=== PATIENT | female | born 1945 | race Caucasian/White ===

== ENCOUNTER 2018-01-31 04:15 | Inpatient (IN) | payer OTHER ==
[~2018-01-31] VITALS: Ht 157.5 cm; Wt 72.5 kg
[~2018-01-31 04:15] MED LIST: ASPIR-LOW81 MG; ASPIRIN81 M2 PO; ATARAX,VISTARIL25 MG PO; ATIVAN0.5 MG PO; ATORVASTATIN CA10 MG PO; BACLOFEN10 MG PO; BENADRYL25 MG PO; BUSPAR5 MG PO; CLARITIN,ALAVAR10 MG PO; COMBIVENT200 INHALA IH; CRANBERRY405 MG PO; DILAUDID4 MG PO; DITROPAN XL5 MG PO; DUONEB 2.5-0.5 M3 ML AEROSOL; DUONEB 2.5-0.5 M3 ML IH; EFFEXOR XR150 MG PO; EUCERIN CREME57 GM TP; EX-LAX15 MG PO; FERROUS SULFAT325 MG PO; FUROSEMIDE20 MG PO; GABAPENTIN600 MG PO; GUAIFENESIN400 MG PO; HYDROCODON-ACE1 EAC7 PO; HYDROMORPHONE HC4 MG PO; KENALOG,ARISTOC80 GM TP; LASIX20 MG PO; LASIX80 MG PO; LEVAQUIN750 MG PO; LEVOFLOXAC750 MG/150 IV; LIDODERM 5% P1 PATCH TD; LIORESAL10 MG PO; LIPITOR10 MG PO; LISINOPRIL5 MG PO; LO-DOSE ASPIRIN81 M1; LO-DOSE ASPIRIN81 M1 PO; LOVENOX30 MG/0.3 SC; LOVENOX40 MG/0.4 SC; NEURONTIN300 MG PO; NEURONTIN600 MG PO; Nucynta PO; OMEPRAZOLE20 M2 PO; OMEPRAZOLE40 M1 PO; OXYBUTYNIN CHLOR5 M1 PO; PLAVIX75 MG; POTASSIMIN75 MG PO; PREDNISONE10 MG PO; PRILOSEC20 MG PO; PRO-STAT AWC L887 ML PO; PROTONIX40 MG PO; Q-TUSSIN DM SY240 ML PO; RITALIN10 MG PO; ROBITUSSIN DM118 ML PO; ROBITUSSIN100 MG/5 M PO; ROCEPHIN1000 MG IM; SENEXON-S TABL1 EACH PO; SENOKOT S,PE1 TABLET PO; SILVADENE20 GM TP; SPIRIVA1 INHALATI IH; STOOL SOFTENER100 M1 PO; TEGRETOL100 MG PO; TRIAMCINOLONE AC5 GM DT; TYLENOL REGULA325 MG PO; Tylenol Regular Stre PO; VENLAFAXINE HC150 M1 PO; VESICARE5 MG PO; VITAMIN D1000 UNIT PO; VITAMIN D250000 UNIT PO; XARELTO20 MG PO; ZESTRIL5 MG PO; Zocor PO; Zoloft PO
[2018-01-31 05:30] LABS: BASOPHIL (%) 0.2 % (0-1); CHLORIDE 107 mEq/L (99-109); EOSINOPHIL (%) 1.9 % (0-5); EOSINOPHIL COUNT 0.2 K/uL (0-0.3); HEMATOCRIT 36.8 % (36.0-46.0); HEMOGLOBIN 11.7 G/DL (11.9-15.5); IMMATURE GRANULOCYTE (%) 0.6 % (0.0-0.7); LYMPHOCYTE COUNT 0.9 K/uL (1.0-2.8); MAGNESIUM 2.2 mg/dL (1.3-2.7); MCH 29.6 PG (29.0-34.0); MCHC 31.8 G/DL (30.0-36.0); MCV 93.2 FL (83-99); MONOCYTE (%) 3.5 % (3-12); MONOCYTE COUNT 0.3 K/uL (0-0.8); NEUTROPHIL (%) 82.8 % (45-76); NEUTROPHIL COUNT 7.1 K/uL (1.8-6.4); PLATELET COUNT 165 K/uL (156-360); POTASSIUM 4.4 mEq/L (3.7-5.4); RBC DIS.WIDTH-CV 13.7 % (11.8-14.6); RBC DIS.WIDTH-SD 47.1 % (39-53); RED BLOOD COUNT 3.95 M/uL (3.80-5.20); SODIUM 144 mEq/L (136-147); WHITE BLOOD COUNT 8.5 K/uL (4.1-10.2)
[2018-01-31 05:31] LABS: GLUCOSE 121 mg/dL (70-99)
[2018-01-31 05:35] LABS: CREATININE 0.8 mg/dL (0.6-1.3); GFR ESTIMATE (CALCULATED) > 59 mL/min/
[2018-01-31 05:36] LABS: UREA NITROGEN (BUN) 16 mg/dL (9-23)
[2018-01-31 05:41] LABS: INTER. NORMALIZED RATIO 1.2
[2018-01-31 05:43] LABS: TROP-I INTERPRETATION NEGATIVE; TROPONIN-I < 0.01 ng/mL (0.0-0.30)
[2018-01-31 05:44] LABS: PTT 27.9 SEC (25-37)
[2018-01-31] MEDS ORDERED: MILK OF MAGN PO (08:55)
[2018-01-31] MEDS ORDERED: DULCOLAX10 MG PR (08:56)
[2018-01-31] MEDS ORDERED: SALINE PR (09:05)
[2018-01-31] MEDS ORDERED: LIPITOR10 MG PO (09:07)
[2018-01-31 09:56] VITALS: BP 131/61
[2018-01-31 12:01] VITALS: BP 127/58
[2018-01-31 15:30] VITALS: BP 143/63
[2018-01-31 19:28] VITALS: BP 134/62
[2018-02-01] VITALS (7 sets, daily range): BP systolic 111–188; BP diastolic 45–75
[2018-02-01] MEDS ORDERED: TEGRETOL100 MG PO (07:45)
[2018-02-01] MEDS ORDERED: BUMEX1 MG PO (07:45)
[2018-02-01] MEDS ORDERED: NEURONTIN100 MG PO (07:46)
[2018-02-01] MEDS ORDERED: MUCINEX600 MG PO (07:46)
[2018-02-01] MEDS ORDERED: DITROPAN XL5 MG PO (07:46)
[2018-02-01] MEDS ORDERED: DUONEB 2.5-0.5 M3 ML AEROSOL ×2 (07:46→07:49)
[2018-02-01] MEDS ORDERED: MIRALAX17 GM PO (07:47)
[2018-02-01] MEDS ORDERED: SENNA PLUS TAB1 EACH PO (07:47)
[2018-02-01] MEDS ORDERED: VENLAFAXINE HC100 MG PO (07:48)
[2018-02-01] MEDS ORDERED: XARELTO20 MG PO (07:48)
[2018-02-01] MEDS ORDERED: TYLENOL REGULA325 MG PO (07:49)
[2018-02-01] MEDS ORDERED: SIMETHICONE80 MG PO (07:50)
[2018-02-01] MEDS ORDERED: KLOR-CON M2020 MEQ PO (07:51)
[2018-02-02 04:39] VITALS: BP 111/63
[2018-02-02 12:25] VITALS: BP 146/67
[2018-02-02 16:23] VITALS: BP 138/63
[2018-02-02 19:59] VITALS: BP 134/62
[2018-02-03 00:02] VITALS: BP 119/54
[2018-02-03 04:28] VITALS: BP 130/60
[2018-02-03 07:45] VITALS: BP 142/65
[2018-02-03 07:53] LABS: CHLORIDE 106 MEQ/L (99-109); CREATININE 0.7 MG/DL (0.6-1.3); GFR ESTIMATE (CALCULATED) > 59 mL/min/; GLUCOSE 109 mg/dL (70-99); POTASSIUM 4.6 MEQ/L (3.7-5.4); SODIUM 146 MEQ/L (136-147); UREA NITROGEN (BUN) 22 mg/dL (9-23)
[2018-02-03 11:44] VITALS: BP 135/56
[2018-02-03] MEDS ORDERED: AUGMENTIN875 MG PO (15:06)
[2018-02-03 15:46] VITALS: BP 126/57
== END 2018-02-03 18:00 | DRG 178 ==
LOC: EME → EDBD 04:15 → EDOF 08:42 → 3EAST 08:42 → ENRESERV 08:44 → 3EAST 09:34
PROVIDERS: Emergency Medicine; Internal Medicine
DX: J69.0 Pneumonitis due to inhalation of food and vomit (principal); J44.1 Chronic obstructive pulmonary disease with (acute) exacerbation; I50.9 Heart failure, unspecified; F32.9 Major depressive disorder, single episode, unspecified; E78.5 Hyperlipidemia, unspecified; K21.9 Gastro-esophageal reflux disease without esophagitis; I11.0 Hypertensive heart disease with heart failure; F41.9 Anxiety disorder, unspecified; I48.2 Chronic atrial fibrillation; E66.9 Obesity, unspecified; G47.33 Obstructive sleep apnea (adult) (pediatric); Z66 Do not resuscitate; I69.354 Hemiplegia and hemiparesis following cerebral infarction affecting left non-dominant side; Z79.82 Long term (current) use of aspirin; Z87.891 Personal history of nicotine dependence; Z68.29 Body mass index [BMI] 29.0-29.9, adult; Z99.81 Dependence on supplemental oxygen
CPT/HCPCS: 71045; 71275; 80048; 82948; 83605; 83735; 84484; 85025; 85610; 85730; 87040; 93005; 94640; 94799; 99281; 99285; J0692; J1650; J1815; J1956; J2543; J2920; J7050

== ENCOUNTER → 2018-03-05 | Outpatient (CLI) | payer OTHER ==
[~2018-03-05] MED LIST changes: +AUGMENTIN875 MG PO; +BUMEX1 MG PO; +DULCOLAX10 MG PR; +KLOR-CON M2020 MEQ PO; +MILK OF MAGN PO; +MIRALAX17 GM PO; +MUCINEX600 MG PO; +NEURONTIN100 MG PO; +SALINE PR; +SENNA PLUS TAB1 EACH PO; +SIMETHICONE80 MG PO; +VENLAFAXINE HC100 MG PO
== END ==
LOC: RAD 10:40
DX: J47.9 Bronchiectasis, uncomplicated (principal); J84.10 Pulmonary fibrosis, unspecified; J44.9 Chronic obstructive pulmonary disease, unspecified
CPT/HCPCS: 71260